=== PATIENT | male | born 2000 | race Two or more races ===

== ENCOUNTER 2024-03-29 19:47 | Emergency (ER) | payer SELFPAY ==
[~2024-03-29] VITALS: Ht 172.7 cm; Wt 78.2 kg
[2024-03-30 00:31] VITALS: BP 115/58; PULSE 98; RESP 18; TEMP 98.7; O2SAT 98
--- NOTE | 2024-03-30 01:12 | DVH ---
XY L HAND 3V XRAY, INDICATION: lac TECHNICAL DATA: Frontal, oblique and lateral views were obtained of the left hand. COMPARISON: None Findings/ IMPRESSION: Displaced fracture of the distal tip of the 4th digit distal phalanx. There is adjacent soft tissue i njury.
--- NOTE | 2024-03-30 01:32 | ED.PDOC ---
HPI Comments This is a 24-year-old patient presents to the ED with left hand index and middle finger injury. Patient states he was cutting sheet metal and metal sliced the tip of his left 3rd and 4th digits. He notes bleeding is controlled at this time. Denies any other known injury at this time sensory strength and motion intact. Chief Complaint: Laceration Time Seen by MD: 20:06 Reviewed Notes: Nurses Notes, Medications, Allergies Allergies: Coded Allergies: No Known Drug Allergy (Verified Allergy, Unknown, 03/29/24) Home Meds Active Scripts Ibuprofen (Ibuprofen) 800 Mg Tab, 1 TAB PO TID PRN for 7 Days, #21 TAB Prov:ALONDRADARIEN FOOD SPECIALIST 03/30/24 Amoxicillin & Pot Clavulanate (AUGMENTIN TABLET) 875 Mg Tb, 1 TAB PO BID for 7 Days, #14 TAB Prov:ALONDRADARIEN FOOD SPECIALIST 03/30/24 Mode of Arrival: Ambulatory Complexity: Simple Laceration Length (cm): 1 Past Medical History PAST MEDICAL HISTORY: Denies Surgical History: Denies all surgeries Family History Family History: Reviewed,noncontributory to illness Social History Smoker: Non-Smoker Alcohol: Denies ETOH Use Drugs: Denies Drug Use Constitutional: denies: chills, diaphoresis, fatigue, fever, malaise, sweats, weakness, others EENTM: denies: blurred vision, double vision, ear bleeding, ear discharge, ear drainage, ear pain, ear ringing, eye pain, eye redness, hearing loss, mouth pain, mouth swelling, nasal discharge, nose bleeding, nose congestion, nose pain, photophobia, tearing, throat pain, throat swelling, voice changes, others Respiratory: denies: cough, hemoptysis, orthopnea, SOB at rest, shortness of breath, SOB with excertion, stridor, wheezing, others Cardiovascular: denies: chest pain, dizzy spells, diaphoresis, Dyspnea on exertion, edema, irregular heart beat, left arm pain, lightheadedness, palpitations, PND, syncope, others Gastrointestinal: denies: abdomen distended, abdominal pain, blood streaked bowels, constipated, diarrhea, dysphagia, difficulty swallowing, hematemesis, melena, nausea, poor appetite, poor fluid intake, rectal bleeding, rectal pain, vomiting, others Genitourinary: denies: burning, dysuria, flank pain, frequency, hematuria, incontinence, penile discharge, penile sore, pain, testicle pain, testicle swelling, urgency, others Neurological: denies: dizziness, fainting, headache, left sided numbness, left sided weakness, numbness, paresthesia, pre-existing deficit, right sided numbness, right sided weakness, seizure, speech problems, tingling, tremors, weakness, others Musculoskeletal: denies: back pain, gout, joint pain, joint swelling, muscle pain, muscle stiffness, neck pain, others Integumetry: reports: laceration (Left 3rd and 4th digit distal aspect), others ; denies: bruises, change in color, change in hair/nails, dryness, lesions, lumps, rash, wounds Allergic/Immunocompromised: denies: Difficulty Healing, Frequent Infections, Hives, Itching, others Hematologic/Lymphatic: denies: anemia, blood clots, easy bleeding, easy bruising, swollen glands, others Endocrine: denies: excessive hunger, excessive sweating, excessive thirst, excessive urination, flushing, intolerance to cold, intolerance to heat, unexplained weight gain, unexplained weight loss, others Psychiatric: denies: anxiety, bipolar disorder, depression, hopeless, panic disorder, schizophrenia, sleepless, suicidal, others Physical Exam General Appearance: No Apparent Distress, Normal HEENT: Pharynx Normal Neck: Full Range of Motion, Non-Tender Respiratory: Lungs Clear, No Respiratory Distress, Normal Breath Sounds Cardiovascular: No Murmur, Normal Peripheral Pulses, Regular Rate/Rhythm Breast Exam: Deferred Gastrointestinal: Non Tender, Soft Genitalia: Deferred Pelvic: Deferred Rectal: Deferred Extremities: Normal capillary refill, Normal range of motion Musculoskeletal : Apperance: Normal Neurologic: Alert, mitten stitcher II-XII nml as Tested, No Motor Deficits, Normal Affect, Normal Mood, No Sensory Deficits Cerebellar Function: Normal Reflexes: Normal Skin: Dry, Normal Color, Warm, Wounds (Distal phalanx left hand 4th finger noted removal of fingertip with no noted bone protrusion, tissue cover in the bone, bleeding is controlled, sensory strength and motion intact. Left hand 3rd digit noted avulsion with bleeding controlled non suturable.) Lymphatic: No Adenopathy Was a procedure done? Was a procedure done?: No Differential diagnosis Generic Laceration: Fracture, Avulsion X-Ray, Labs, Meds, VS Vital Signs Date Time Temp Pulse Resp B/P (MAP) Pulse Ox O2 Delivery O2 Flow Rate FiO2 03/30/24 00:31 98.7 62 18 115/58 (77) 98 98.7 03/30/24 00:31 98 18 98 Room Air 03/29/24 20:25 98.7 73 18 120/73 (89) 99 X-Ray, Labs, Meds, VS Comment Left hand x-ray shows fracture of the distal phalanx displaced of the 4th finger. Left 3rd and 4th digit cleaned and dressed. Reports tetanus under 3 years ago. Patient requesting discharge at this time he states feels better. Advised to follow up with his PCP 2-3 days consider referral for hand. Patient started prophylactically on Augmentin twice daily x7 days. Also ibuprofen 800 mg was sent to his pharmacy advised to keep the dressing intact for least 24-48 hours then have the wound re-evaluated 2 days. ER return precautions provided patient indicated understanding, patient agrees with discharge plan of care. Time of 1ST Reevaluation: :30 Reevaluation 1ST: Improved Patient Education/Counseling: Diagnosis, Treatment, Prognosis, Need For Follow Up Family Education/Counseling: No Family Present Departure 1 Departure Time of Disposition: 01:30 Impression: Primary Impression: Finger fracture, left Qualified Codes: S62.631A - Displaced fracture of distal phalanx of left index finger, initial encounter for closed fracture Disposition: 01 HOME / SELF CARE / HOMELESS Condition: Stable e-Prescriptions Ibuprofen (Ibuprofen) 800 Mg Tab 1 TAB PO TID PRN for 7 Days, #21 TAB Prov: DARIEN CANTU 03/30/24 Amoxicillin & Pot Clavulanate (AUGMENTIN TABLET) 875 Mg Tb 1 TAB PO BID for 7 Days, #14 TAB Prov: DARIEN CANTU 03/30/24 Discharged With: Significant Other Critical Care Note Critical Care Time?: No Stability Stability form required: DARIEN Nichols Mar 30, 2024 01:32
[2024-03-30] MEDS ORDERED: AUG875T PO (01:47)
[2024-03-30] MEDS ORDERED: IBUP-1456 PO (01:47)
== END 2024-03-30 01:37 | disposition home or self-care (01) ==
LOC: ER 19:47
DX: S62.633A Displaced fracture of distal phalanx of left middle finger, initial encounter for closed fracture (principal); S62.635A Displaced fracture of distal phalanx of left ring finger, initial encounter for closed fracture; Z79.899 Other long term (current) drug therapy; W45.8XXA Other foreign body or object entering through skin, initial encounter; Y93.89 Activity, other specified; Y92.89 Other specified places as the place of occurrence of the external cause; Y99.8 Other external cause status
CPT/HCPCS: 73130